=== PATIENT | female | born 1945 | race Caucasian/White ===

== ENCOUNTER 2021-10-05 09:53 | Emergency (ER) | payer MEDICARE, BC ==
[2021-10-05 11:25] VITALS: TEMP 97.7
[2021-10-05] MEDS ORDERED: SODIUM CHLORIDE 0.9% 500 ML 500 ML IV STA (12:56)
[2021-10-05] MEDS ORDERED: ONDANSETRON 4 MG/2 ML VIAL IVP STA (12:56)
[2021-10-05] MEDS ORDERED: KETOROLAC 15 MG/ML 1 ML VIAL IVP STA (12:57)
--- NOTE | 2021-10-05 13:01 | ED ---
Nausea/Vomiting/Diarrhea HPI - General Source: patient Mode of arrival: ambulatory Limitations: no limitations - History of Present Illness MD complaint: nausea, vomiting -: days(s) (6) Description of Vomiting: watery, bilious Associated Abdominal Pain: No Severity scale (1-10): 1 Quality: aching Consistency: constant Worsens with: eating Associated Symptoms: myalgias, cough, fever/chills, headaches, loss of appetite, malaise, nausea/vomiting <Pradip Lopez - Last Filed: 10/05/21 15:31> - General Source: RN notes reviewed, old records reviewed <Richie Cordero - Last Filed: 10/05/21 16:49> - General Chief complaint: Nausea/Vomiting/Diarrhea Stated complaint: headache, vomiting Time Seen by Provider: 10/05/21 12:45 - History of Present Illness Initial comments: This is a well-appearing 74-year-old female that presents to the emergency room alert and oriented 4 with complaints of body aches, nausea vomiting, cough and fever chills. Patient states that she received her Covid vaccine on and on Sunday she became sick. She has had persistent vomiting with decreased appetite. She denies any chest pain but does state she has an occasional dry cough. She denies any hematochezia or hematemesis. She states that she did try to eat something as unable related to the nausea. She's vomited 3 times today bilious in color. Does have a history of hypertension. (Pradip Lopez) - Related Data Home Medications Medication Instructions Recorded Confirmed Aspirin/Acetaminophen/Caffeine 2 tab PO Q12H PRN 10/05/21 10/05/21 [Excedrin Extra Strength Caplet] Clobetasol Propionate [Temovate 1 applic TOPICAL BID 10/05/21 10/05/21 0.05% Cream] Previous Rx's Medication Instructions Recorded Ondansetron Odt [Zofran Odt] 4 mg PO Q8HR PRN 3 Days #9 tab 10/05/21 Allergies Allergy/AdvReac Type Severity Reaction Status Date / Time gluten Allergy Unknown Verified 10/05/21 13:16 Iodinated Contrast Media Allergy Rash/Hives Verified 10/05/21 13:16 tetracycline Allergy Anaphylaxis Verified 10/05/21 13:16 Review of Systems ROS Other: All systems not noted in ROS Statement are negative. <Pradip Lopez - Last Filed: 10/05/21 15:31> ROS Other: All systems not noted in ROS Statement are negative. <Richie Cordero - Last Filed: 10/05/21 16:49> ROS Statement: Those systems with pertinent positive or pertinent negative responses have been documented in the HPI. Past Medical History Past Medical History: Hypertension History of Any Multi-Drug Resistant Organisms: None Reported Past Surgical History: Tonsillectomy Past Psychological History: No Psychological Hx Reported Smoking Status: Never smoker Past Alcohol Use History: None Reported Past Drug Use History: None Reported <Pradip Lopez - Last Filed: 10/05/21 15:31> General Exam Limitations: no limitations General appearance: alert, in no apparent distress Head exam: Present: atraumatic, normocephalic Eye exam: Present: normal appearance. Absent: scleral icterus, conjunctival injection, periorbital swelling, periorbital tenderness ENT exam: Present: normal exam, normal oropharynx, mucous membranes moist Neck exam: Present: normal inspection. Absent: tenderness, meningismus Respiratory exam: Present: normal lung sounds bilaterally. Absent: respiratory distress, wheezes, rales, rhonchi, stridor, accessory muscle use Cardiovascular Exam: Present: regular rate, normal rhythm GI/Abdominal exam: Present: soft. Absent: distended, tenderness, rigid Extremities exam: Present: normal inspection, normal capillary refill. Absent: tenderness, pedal edema Back exam: Present: normal inspection. Absent: tenderness, CVA tenderness (R), CVA tenderness (L), rash noted Neurological exam: Present: alert, oriented X3 Psychiatric exam: Present: normal affect, normal mood Skin exam: Present: warm, dry, normal color. Absent: cyanosis, diaphoretic, petechiae, pallor <Pradip Lopez - Last Filed: 10/05/21 15:31> Course - Reevaluation(s) Time: 15:31 <Pradip Lopez - Last Filed: 10/05/21 15:31> Vital Signs 10/05/21 11:19 Temperature 97.7 F Pulse Rate 76 Respiratory 15 Rate Blood Pressure 150/85 O2 Sat by Pulse 96 Oximetry - Reevaluation(s) Reevaluation #1: 10/05/21 15:31 Patient has no further nausea or vomiting. She does have a low-grade fever of 99.6. Labs are still pending, patient was signed out to Dr. Cordero for disposition. (Pradip Lopez) Medical Decision Making - Lab Data Result diagrams: 10/05/21 13:35 - EKG Data EKG shows normal: sinus rhythm (Ventricular rate of 63, MD interval 0.164, QRS 0.114, QTC 0.438) <Pradip Lopez - Last Filed: 10/05/21 15:31> - Lab Data Result diagrams: 10/05/21 13:35 10/05/21 15:21 <Richie Cordero - Last Filed: 10/05/21 16:49> - Medical Decision Making Patient was signed out to me pending results of the remaining laboratory studies. Patient received a COVID-19 vaccine last week has had nonspecific symptoms since. Primary is nausea and vomiting. On my evaluation, patient is tolerating oral intake and is feeling improved.I explained to her the results of her laboratory studies, which were relatively unremarkable. Patient has a mild leukocytosis of 12. Patient's urinalysis shows moderate leuk esterase with 8 wbc's. Patient recently completed a course of antibiotics for a UTI last week. Is having no current symptoms. We discussed results, and since we are sending off a culture for the urine, we'll update her if there are any signs of infection. I do not believe we need to start antibiotics at this time. Remainder the patient's labs and workup are unremarkable. She expressed understanding. She will like to go home. I believe this is reasonable. Patient received ODT Zofran as prescribed. I will provide the patient with a prescription for ODT Zofran. I instructed the patient to follow up with their PCP in the next 3 days. I explained that the patient should return to the emergency department if they experience any worsening symptoms. Strict return precautions were discussed with the patient. The patient expressed understanding of these instructions. I answered all questions that the patient had. The patient was discharged home in good condition with their prescriptions and follow up information. (Richie Cordero) - Lab Data Lab Results 10/05/21 10/05/21 10/05/21 Range/Units 13:35 13:35 13:35 WBC 12.0 H (3.8-10.6) k/uL RBC 4.47 (3.80-5.40) m/uL Hgb 14.1 (11.4-16.0) gm/dL Hct 41.8 (34.0-46.0) % MCV 93.6 (80.0-100.0) fL MCH 31.6 (25.0-35.0) pg MCHC 33.8 (31.0-37.0) g/dL RDW 12.4 (11.5-15.5) % Plt Count 258 (150-450) k/uL MPV 9.3 Neutrophils % 69 % Lymphocytes % 20 % Monocytes % 7 % Eosinophils % 2 % Basophils % 1 % Neutrophils # 8.3 H (1.3-7.7) k/uL Lymphocytes # 2.3 (1.0-4.8) k/uL Monocytes # 0.9 (0-1.0) k/uL Eosinophils # 0.2 (0-0.7) k/uL Basophils # 0.1 (0-0.2) k/uL Sodium (137-145) mmol/L Potassium (3.5-5.1) mmol/L Chloride (98-107) mmol/L Carbon Dioxide (22-30) mmol/L Anion Gap mmol/L BUN (7-17) mg/dL Creatinine (0.52-1.04) mg/dL Est GFR (CKD-EPI)AfAm (>60 ml/min/1.73 sqM) Est GFR (CKD-EPI)NonAf (>60 ml/min/1.73 sqM) Glucose (74-99) mg/dL Calcium (8.4-10.2) mg/dL Total Bilirubin (0.2-1.3) mg/dL AST (14-36) U/L ALT (4-34) U/L Alkaline Phosphatase (38-126) U/L Total Protein (6.3-8.2) g/dL Albumin (3.5-5.0) g/dL Amylase (30-110) U/L Lipase (23-300) U/L Urine Color Yellow Urine Appearance Clear (Clear) Urine pH 5.5 (5.0-8.0) Ur Specific [place] 1.026 (1.001-1.035) Urine Protein Trace H (Negative) Urine Glucose (UA) Negative (Negative) Urine Ketones Negative (Negative) Urine Blood Negative (Negative) Urine Nitrite Negative (Negative) Urine Bilirubin Negative (Negative) Urine Urobilinogen <2.0 (<2.0) mg/dL Ur Leukocyte Esterase Moderate H (Negative) Urine RBC 1 (0-5) /hpf Urine WBC 8 H (0-5) /hpf Ur Squamous Epith Cells <1 (0-4) /hpf Urine Mucus Few H (None) /hpf Coronavirus (PCR) (Not Detectd) Influenza Type A RNA Not Detected (Not Detectd) Influenza Type B (PCR) Not Detected (Not Detectd) 10/05/21 10/05/21 Range/Units 13:35 15:21 WBC (3.8-10.6) k/uL RBC (3.80-5.40) m/uL Hgb (11.4-16.0) gm/dL Hct (34.0-46.0) % MCV (80.0-100.0) fL MCH (25.0-35.0) pg MCHC (31.0-37.0) g/dL RDW (11.5-15.5) % Plt Count (150-450) k/uL MPV Neutrophils % % Lymphocytes % % Monocytes % % Eosinophils % % Basophils % % Neutrophils # (1.3-7.7) k/uL Lymphocytes # (1.0-4.8) k/uL Monocytes # (0-1.0) k/uL Eosinophils # (0-0.7) k/uL Basophils # (0-0.2) k/uL Sodium 133 L (137-145) mmol/L Potassium 3.7 (3.5-5.1) mmol/L Chloride 99 (98-107) mmol/L Carbon Dioxide 26 (22-30) mmol/L Anion Gap 8 mmol/L BUN 17 (7-17) mg/dL Creatinine 0.81 (0.52-1.04) mg/dL Est GFR (CKD-EPI)AfAm 84 (>60 ml/min/1.73 sqM) Est GFR (CKD-EPI)NonAf 73 (>60 ml/min/1.73 sqM) Glucose 94 (74-99) mg/dL Calcium 8.1 L (8.4-10.2) mg/dL Total Bilirubin 0.6 (0.2-1.3) mg/dL AST 23 (14-36) U/L ALT 25 (4-34) U/L Alkaline Phosphatase 104 (38-126) U/L Total Protein 6.9 (6.3-8.2) g/dL Albumin 3.6 (3.5-5.0) g/dL Amylase 89 (30-110) U/L Lipase 220 (23-300) U/L Urine Color Urine Appearance (Clear) Urine pH (5.0-8.0) Ur Specific [place] (1.001-1.035) Urine Protein (Negative) Urine Glucose (UA) (Negative) Urine Ketones (Negative) Urine Blood (Negative) Urine Nitrite (Negative) Urine Bilirubin (Negative) Urine Urobilinogen (<2.0) mg/dL Ur Leukocyte Esterase (Negative) Urine RBC (0-5) /hpf Urine WBC (0-5) /hpf Ur Squamous Epith Cells (0-4) /hpf Urine Mucus (None) /hpf Coronavirus (PCR) Not Detected (Not Detectd) Influenza Type A RNA (Not Detectd) Influenza Type B (PCR) (Not Detectd) Disposition <Pradip Lopez - Last Filed: 10/05/21 15:31> Is patient prescribed a controlled substance at d/c from ED?: No Time of Disposition: 16:15 <Richie Cordero - Last Filed: 10/05/21 16:49> Clinical Impression: Nausea and vomiting Disposition: HOME SELF-CARE Condition: Good Instructions (If sedation given, give patient instructions): Acute Nausea and Vomiting (ED) Prescriptions: Ondansetron Odt [Zofran Odt] 4 mg PO Q8HR PRN 3 Days #9 tab PRN Reason: Nausea Referrals: Justine Jarvis MD [Primary Care Provider] - 1-2 days
--- NOTE | 2021-10-05 14:13 | XR ---
EXAMINATION TYPE: XR chest 2V DATE OF EXAM: 10/05/2021 COMPARISON: NONE HISTORY: Shortness of breath TECHNIQUE: Frontal and lateral views of the chest are obtained. FINDINGS: Scattered senescent parenchymal changes noted. No evidence for infiltrate. No evidence for atelectasis. Heart size is stable. Mediastinal structures are stable and grossly unremarkable. No evidence for hilar prominence. Degenerative changes dorsal spine. IMPRESSION: 1. No evidence for acute pulmonary disease.
[2021-10-05 14:19] LABS: Basophils # (A) 0.1 k/uL (0-0.2); Basophils % (A) 1 %; Eosinophils # (A) 0.2 k/uL (0-0.7); Eosinophils % (A) 2 %; HCT 41.8 % (34.0-46.0); HGB 14.1 gm/dL (11.4-16.0); Lymphocytes # (A) 2.3 k/uL (1.0-4.8); Lymphocytes % (A) 20 %; MCH 31.6 pg (25.0-35.0); MCHC 33.8 g/dL (31.0-37.0); MCV 93.6 fL (80.0-100.0); Mean Platelet Volume 9.3; Monocytes # (A) 0.9 k/uL (0-1.0); Monocytes % (A) 7 %; Neutrophils # (A) 8.3 k/uL (1.3-7.7); Neutrophils % (A) 69 %; Platelet Count 258 k/uL (150-450); RBC 4.47 m/uL (3.80-5.40); RDW 12.4 % (11.5-15.5)
[2021-10-05 14:42] LABS: Appearance,Urine Clear (Clear); Bilirubin,Urine Negative (Negative); Blood,Urine Negative (Negative); Color,Urine Yellow; Glucose,Urine (UA) Negative (Negative); Ketones,Urine Negative (Negative); Leukocyte Esterase,Urine Moderate (Negative); Mucus,Urine Few /hpf; Nitrite,Urine Negative (Negative); PH, Urine 5.5 (5.0-8.0); Protein,Urine Trace (Negative); RBC,Urine 1 /hpf (0-5); Specific Gravity,Urine 1.026 (1.001-1.035); Squamous Epithelial Cell,Urine <1 /hpf (0-4); Urobilinogen,Urine <2.0 mg/dL (<2.0); WBC,Urine 8 /hpf (0-5)
[2021-10-05] MEDS ORDERED: ACETAMINOPHEN TAB 500 MG TAB PO STA (15:32)
[2021-10-05 15:43] LABS: Albumin 3.6 g/dL (3.5-5.0); Calcium 8.1 mg/dL (8.4-10.2); Potassium 3.7 mmol/L (3.5-5.1); Total Bilirubin 0.6 mg/dL (0.2-1.3); Total Protein 6.9 g/dL (6.3-8.2)
[2021-10-05 16:35] VITALS: BP 120/67; PULSE 86; RESP 16
== END 2021-10-05 16:35 | disposition home or self-care (01) ==
LOC: EC 09:53
DX: R11.2 Nausea with vomiting, unspecified (principal); Z20.822 Contact with and (suspected) exposure to COVID-19; I10 Essential (primary) hypertension; Z79.82 Long term (current) use of aspirin
CPT/HCPCS: 36415; 93005; 80053; 82150; 83690; 85025; 81001; 87502; 87635; 71046; 99284; 96374; 96375; 96361; J2405; J1885

== ENCOUNTER → 2023-10-09 | Outpatient (CLI) | payer MEDICARE, BC ==
--- NOTE | 2023-10-09 15:48 | BD ---
EXAMINATION TYPE: Axial Bone Density DATE OF EXAM: 10/09/2023 CLINICAL HISTORY: 77 years old Female. ICD-10 CODE: Z78.0 ASYMP PIOTR STATE Height: 64.2 in Weight: 197 lbs FRAX RISK QUESTIONS: Secondary Osteoporosis: 3. Menopause before 45: age 44 RISK FACTORS HISTORY OF: Surgery to Hip(right/left): rt 03/08 and 2017 EXAM MEASUREMENTS: Bone mineral densitometry was performed using the [employer] System. Bone mineral density as measured about the Lumbar spine is: ----- L1-L4(G/cm2): 1.728 T Score Values are as follows: ----- L1: 2.6 ----- L2: 3.0 ----- L3: 5.6 ----- L4: 6.7 ----- L1-L4: 4.6 Z Score Values are as follows: ----- L1: 3.6 ----- L2: 3.9 ----- L3: 6.5 ----- L4: 7.7 ----- L1-L4: 5.5 Bone mineral density baseline elías hip replacement. rt 2022 and 2017 Bone mineral density about the L Wrist (g/cm2): 0.689 T Score values are as follows: -----Dist. R+U: 0.7 -----Prox. R+U: 0.4 -----Radius total: 0.2 Z Score values are as follows: -----Dist. R+U: 3.1 -----Prox. R+U: 2.7 -----Radius total: 2.6 Bone mineral density baseline IMPRESSION: Normal (Values between +1 and -1 indicate normal bone mass). Consider repeating this study in 5 year s or sooner if there is some new clinical indication. NOTE: T-SCORE=SD OF THE YOUNG ADULT MEAN.
[2023-10-09 15:53] LABS: HCT 41.8 % (34.0-46.0); HGB 12.8 gm/dL (11.4-16.0); MCH 30.4 pg (25.0-35.0); MCHC 30.7 g/dL (31.0-37.0); MCV 99.3 fL (80.0-100.0); Mean Platelet Volume 9.6; Platelet Count 241 k/uL (150-450); RDW 12.7 % (11.5-15.5); WBC 7.9 k/uL (3.8-10.6)
[2023-10-09 16:08] LABS: ALT 21 U/L (4-34); AST 24 U/L (14-36); African American GFR (CKD) 68 (>60 ml/min/1.73 sqM); Albumin 4.1 g/dL (3.5-5.0); Alkaline Phosphatase 147 U/L (38-126); Anion Gap 6 mmol/L; Blood Urea Nitrogen 18 mg/dL (7-17); Calcium 9.2 mg/dL (8.4-10.2); Carbon Dioxide 27 mmol/L (22-30); Chloride 106 mmol/L (98-107); Glucose 84 mg/dL (74-99); Non-African American GFR(CKD) 59 (>60 ml/min/1.73 sqM); Potassium 4.5 mmol/L (3.5-5.1); Sodium 139 mmol/L (137-145); Total Bilirubin 0.7 mg/dL (0.2-1.3); Total Protein 7.3 g/dL (6.3-8.2)
[2023-10-09 16:21] LABS: T4, Free (Free Thyroxine) 0.89 ng/dL (0.78-2.19)
[2023-10-10 02:44] LABS: Chol/HDL Ratio 3.75 Ratio; LDL Cholesterol,Calculated 118.1 mg/dL (0.0-131.0)
== END | disposition home or self-care (01) ==
LOC: RADBDWWP 14:21
PROVIDERS: ATTEND Family Medicine
DX: Z78.0 Asymptomatic menopausal state (principal)
CPT/HCPCS: 36415; 77080; 80053; 80061; 82306; 83036; 84439; 84443; 85027

== ENCOUNTER 2023-10-25 13:24 | Observation (INO) | payer MEDICARE, BC ==
[2023-10-25 15:23] LABS: Basophils % (A) 0 %; Eosinophils # (A) 0.1 k/uL (0-0.7); Eosinophils % (A) 1 %; HCT 41.3 % (34.0-46.0); HGB 13.6 gm/dL (11.4-16.0); Lymphocytes # (A) 0.5 k/uL (1.0-4.8); Lymphocytes % (A) 7 %; MCH 30.9 pg (25.0-35.0); Mean Platelet Volume 9.9; Monocytes # (A) 0.6 k/uL (0-1.0); Monocytes % (A) 7 %; Neutrophils # (A) 6.3 k/uL (1.3-7.7); Neutrophils % (A) 83 %; Platelet Count 178 k/uL (150-450); RBC 4.41 m/uL (3.80-5.40); RDW 12.7 % (11.5-15.5); WBC 7.5 k/uL (3.8-10.6)
[2023-10-25] MEDS: SODIUM CHLORIDE 0.9% 1,000 ML IV ONE ×2 (15:23→18:15)
[2023-10-25] MEDS: ONDANSETRON 4 MG/2 ML VIAL IVP STA (15:23)
[2023-10-25] MEDS: SODIUM CHLORIDE 0.9% 1,000 ML IV STA (15:23)
[2023-10-25 15:28] LABS: ALT 21 U/L (4-34); AST 25 U/L (14-36); African American GFR (CKD) 64 (>60 ml/min/1.73 sqM); Albumin 3.6 g/dL (3.5-5.0); Alkaline Phosphatase 116 U/L (38-126); Amylase 106 U/L (30-110); Anion Gap 7 mmol/L; Blood Urea Nitrogen 21 mg/dL (7-17); Calcium 8.5 mg/dL (8.4-10.2); Carbon Dioxide 26 mmol/L (22-30); Chloride 100 mmol/L (98-107); Glucose 114 mg/dL (74-99); Lipase 453 U/L (23-300); Non-African American GFR(CKD) 55 (>60 ml/min/1.73 sqM); Potassium 4.4 mmol/L (3.5-5.1); Sodium 133 mmol/L (137-145); Total Bilirubin 0.4 mg/dL (0.2-1.3); Total Protein 6.7 g/dL (6.3-8.2)
[2023-10-25 15:33] LABS: MCV 93.6 fL (80.0-100.0)
[2023-10-25] MEDS: METOCLOPRAMIDE 5 MG/ML 2 ML VIAL IVP STA (18:16)
[2023-10-25] MEDS: ASPIRIN-ACET-CAFF 250-250-65MG 1 EACH TAB PO STA (19:01)
[2023-10-25] MEDS ORDERED: ACETAMINOPHEN TAB 325 MG TAB PO PRN (20:52)
[2023-10-25] MEDS ORDERED: NALOXONE 0.4 MG/ML 1 ML VIAL IV PRN (20:52)
[2023-10-25] MEDS ORDERED: ONDANSETRON 4 MG/2 ML VIAL IVP PRN (20:52)
[2023-10-25] MEDS ORDERED: MORPHINE SULFATE 4 MG/ML SYRINGE IV PRN (20:52)
--- NOTE | 2023-10-25 21:01 | CT ---
EXAMINATION TYPE: CT abdomen pelvis wo con DATE OF EXAM: 10/25/2023 COMPARISON: None INDICATION: Intractable vomiting/fever. DLP: 720.1 mGycm, Automated exposure control for dose reduction was used. CONTRAST: 0 mL of Isovue 300. Study performed without Oral Contrast TECHNIQUE: Axial images were obtained from above the diaphragm to the pubic rami in the axial plane a t 5 mm thick sections. Reconstructed images are reviewed on the computer in the coronal plane. FINDINGS: Limited CT sections are obtained the lung bases. The lung bases are clear. CT ABDOMEN: Liver: Normal Spleen: Normal Pancreas: Normal Adrenal glands: The adrenal glands are normal. Gallbladder: Gallstones are present. Kidneys: No masses are evident. No hydronephrosis is present. There is a large cyst on the medial i nferior right kidney no renal stones are evident Aorta: Vascular calcification is within the aorta. Inferior vena cava: Normal. CT PELVIS: Periumbilical fat-containing hernia is present with an opening of 2.1 cm Loops of bowel within the abdomen and pelvis are normal. Studies without oral contrast limiting b owel evaluation. Diverticular changes sigmoid colon without acute diverticulitis. The prosthesis dede fact limits the inferior most portion of the pelvis. No suspicious dilated loops of bowel are evident . Appendix: Normal as visualized. Urinary bladder: Normal. Genitourinary structures: Uterus is normal adnexa are unremarkable Osseous structures: No suspicious lytic or sclerotic lesions. IMPRESSION: 1. No suspicious abnormality account for vomiting. Correlate for gastroenteritis. 2. Periumbilical hernia containing mesenteric fat. 3. Cholelithiasis 4. Right renal cyst
[2023-10-26] MEDS: ONDANSETRON 4 MG/2 ML VIAL IVP STA (00:10)
[2023-10-26] MEDS: SODIUM CHLORIDE 0.9% 1,000 ML IV SCH (00:15)
--- NOTE | 2023-10-26 00:31 | ED ---
Nausea/Vomiting/Diarrhea HPI - General Chief complaint: Weakness Stated complaint: vomitting/weakness Time Seen by Provider: 10/25/23 13:58 Source: patient Mode of arrival: wheelchair Limitations: no limitations - History of Present Illness Initial comments: This patient is a 78-year-old woman who presents to evaluation for nausea and vomiting which has been going on since approximately Sunday. The patient states that she now is feeling very weak. She had been seen clinic in [place] Sunday, she had IV fluids and was feeling a little better.. The patient reports that symptoms recurred and she has not been tolerating much in the way of oral intake. She now is becoming very weak. She is having a hard time getting around the house. She is sleeping all the time. MD complaint: nausea, vomiting, diarrhea Onset/Timin -: days(s) Description of Vomiting: food contents Location: diffuse Radiation: none Severity: mild Quality: cramping Consistency: intermittent Improves with: none Worsens with: none Associated Symptoms: weakness - Related Data Home Medications Medication Instructions Recorded Confirmed Cholecalciferol [Vitamin D3 (25 50 mcg PO DAILY 10/25/23 10/25/23 Mcg = 1000 Iu)] Losartan [Cozaar] 25 mg PO DAILY 10/25/23 10/25/23 Losartan [Cozaar] 50 mg PO DAILY 10/25/23 10/25/23 Multivitamins, Thera [Multivitamin 1 tab PO DAILY 10/25/23 10/25/23 (formulary)] Sulfamethox-Tmp 800-160Mg [Bactrim 1 tab PO BID 10/25/23 10/25/23 DS 800-160 mg] Vit C/E/Zn/Coppr/Lutein/Zeaxan 1 cap PO BID 10/25/23 10/25/23 [Preservision Areds 2 Softgel] Previous Rx's Medication Instructions Recorded Ondansetron Odt [Zofran Odt] 4 mg PO Q8HR PRN 3 Days #9 tab 10/05/21 Allergies Allergy/AdvReac Type Severity Reaction Status Date / Time Iodinated Contrast Media Allergy Rash/Hives Verified 10/25/23 15:20 Latex, Natural Rubber Allergy Rash/Hives Verified 10/25/23 15:20 tetracycline Allergy Anaphylaxis Verified 10/25/23 15:20 gluten AdvReac Nausea & Verified 10/25/23 15:20 Vomiting & Diarrhea Review of Systems ROS Statement: Those systems with pertinent positive or pertinent negative responses have been documented in the HPI. ROS Other: All systems not noted in ROS Statement are negative. Constitutional: Reports: weakness. Denies: fever, chills ENT: Denies: throat pain, congestion Respiratory: Denies: cough, dyspnea, wheezes Cardiovascular: Denies: chest pain, palpitations, edema Gastrointestinal: Reports: nausea, vomiting, diarrhea. Denies: constipation, hematemesis, melena, hematochezia Genitourinary: Denies: dysuria, frequency, hematuria Musculoskeletal: Denies: back pain Skin: Denies: rash Neurological: Denies: headache, weakness, numbness Past Medical History Past Medical History: Hypertension History of Any Multi-Drug Resistant Organisms: None Reported Past Surgical History: Tonsillectomy Past Psychological History: No Psychological Hx Reported Smoking Status: Never smoker Past Alcohol Use History: None Reported Past Drug Use History: None Reported General Exam Limitations: no limitations General appearance: alert, in no apparent distress Head exam: Present: atraumatic, normocephalic Eye exam: Present: normal appearance. Absent: scleral icterus, conjunctival in jection ENT exam: Present: mucous membranes dry Neck exam: Present: normal inspection, full ROM. Absent: meningismus Respiratory exam: Present: normal lung sounds bilaterally. Absent: respiratory distress, wheezes, rales, rhonchi, stridor, accessory muscle use Cardiovascular Exam: Present: regular rate, normal rhythm, normal heart sounds. Absent: systolic murmur, diastolic murmur, rubs, gallop GI/Abdominal exam: Present: soft. Absent: distended, tenderness, guarding, rebound, rigid, mass, hernia Extremities exam: Present: normal inspection, normal capillary refill. Absent: pedal edema, calf tenderness Back exam: Present: normal inspection. Absent: CVA tenderness (R), CVA tenderness (L) Neurological exam: Present: alert Skin exam: Present: warm, dry, intact, normal color. Absent: rash Course Vital Signs 10/25/23 10/25/23 10/25/23 13:32 15:25 18:18 Temperature 98.8 F Pulse Rate 81 65 75 Respiratory 16 16 16 Rate Blood Pressure 113/69 118/61 128/69 O2 Sat by Pulse 96 95 95 Oximetry 10/25/23 10/26/23 18:56 00:00 Temperature 101.4 F H 98.6 F Pulse Rate 66 Respiratory 16 Rate Blood Pressure 124/66 O2 Sat by Pulse 97 Oximetry Medical Decision Making - Medical Decision Making Patient is 78-year-old woman here with nausea and vomiting. The patient continued to have nausea despite fluids and medications. The patient then spiked fever and did have some abdominal discomfort, therefore CT scan is obta [id number] which does not reveal etiology of fever. Given that the patient has not had marked improvement, will admit to have continued hydration, antiemetics, - Lab Data Result diagrams: 10/25/23 15:13 10/25/23 15:13 Lab Results 10/25/23 10/25/23 Range/Units 15:13 15:13 WBC 7.5 (3.8-10.6) k/uL RBC 4.41 (3.80-5.40) m/uL Hgb 13.6 (11.4-16.0) gm/dL Hct 41.3 (34.0-46.0) % MCV 93.6 D (80.0-100.0) fL MCH 30.9 (25.0-35.0) pg MCHC 33.0 (31.0-37.0) g/dL RDW 12.7 (11.5-15.5) % Plt Count 178 (150-450) k/uL MPV 9.9 Neutrophils % 83 % Lymphocytes % 7 % Monocytes % 7 % Eosinophils % 1 % Basophils % 0 % Neutrophils # 6.3 (1.3-7.7) k/uL Lymphocytes # 0.5 L (1.0-4.8) k/uL Monocytes # 0.6 (0-1.0) k/uL Eosinophils # 0.1 (0-0.7) k/uL Basophils # 0.0 (0-0.2) k/uL Sodium 133 L (137-145) mmol/L Potassium 4.4 (3.5-5.1) mmol/L Chloride 100 (98-107) mmol/L Carbon Dioxide 26 (22-30) mmol/L Anion Gap 7 mmol/L BUN 21 H (7-17) mg/dL Creatinine 1.00 (0.52-1.04) mg/dL Est GFR (CKD-EPI)AfAm 64 (>60 ml/min/1.73 sqM) Est GFR (CKD-EPI)NonAf 55 (>60 ml/min/1.73 sqM) Glucose 114 H (74-99) mg/dL Calcium 8.5 (8.4-10.2) mg/dL Total Bilirubin 0.4 (0.2-1.3) mg/dL AST 25 (14-36) U/L ALT 21 (4-34) U/L Alkaline Phosphatase 116 (38-126) U/L Total Protein 6.7 (6.3-8.2) g/dL Albumin 3.6 (3.5-5.0) g/dL Amylase 106 (30-110) U/L Lipase 453 H (23-300) U/L Disposition Clinical Impression: Intractable vomiting Disposition: ADMITTED IP TO THIS [facility] Condition: Good Is patient prescribed a controlled substance at d/c from ED?: No
[2023-10-26] MEDS: PANTOPRAZOLE 40 MG/10 ML VIAL IVP SCH (11:34)
[2023-10-26] MEDS: ASPIRIN-ACET-CAFF 250-250-65MG 1 EACH TAB PO PRN (11:40)
--- NOTE | 2023-10-26 12:06 | P.HPIM ---
History of Present Illness -78-year-old female came in with complaints of nausea vomiting found to have some gastroenteritis and an incidental finding of umbilical hernia although clinically patient does not appear to have any incarcerated hernia patient denies any abdominal pain at this time patient has not been tolerating food very well patient was seen in ER couple days ago was sent home and comes back again patient was started on Protonix is on full liquid diet will advance to soft diet later today. REVIEW OF SYSTEMS: All other systems are negative except those mentioned in the HPI PHYSICAL EXAMINATION: GENERAL: The patient is alert and oriented x3, not in any acute distress. Well developed, well nourished. HEENT: Pupils are round and equally reacting to light. EOMI. No scleral icterus. No conjunctival pallor. Normocephalic, atraumatic. No pharyngeal erythema. No thyromegaly. CARDIOVASCULAR: S1 and S2 present. No murmurs, rubs, or gallops. PULMONARY: Chest is clear to auscultation, no wheezing or crackles. ABDOMEN: Soft, nontender, nondistended, normoactive bowel sounds. No palpable organomegaly. MUSCULOSKELETAL: No joint swelling or deformity. EXTREMITIES: No cyanosis, clubbing, or pedal edema. NEUROLOGICAL: Gross neurological examination did not reveal any focal deficits. SKIN: No rashes. Assessment and plan -Nausea vomiting secondary to gastritis, peptic ulcer disease or gastroenteritis Protonix advance diet as tolerated if she can tolerate diet better later today patient will be discharged today. Patient is also on Bactrim may have contributed to her nausea vomiting I need to find out why patient is taking Ba ctrim. -Hypovolemic hyponatremia secondary to nausea vomiting IV fluids -Nonspecific elevation of lipase Hypertension patient can continue her losartan at home her blood pressure is slightly low because of nausea vomiting and dehydration If patient can tolerate diet well later today will be discharged today. Past Medical History Past Medical History: Hypertension History of Any Multi-Drug Resistant Organisms: None Reported Past Surgical History: Tonsillectomy Past Psychological History: No Psychological Hx Reported Smoking Status: Never smoker Past Alcohol Use History: None Reported Past Drug Use History: None Reported Medications and Allergies Home Medications Medication Instructions Recorded Confirmed Type Ondansetron Odt [Zofran Odt] 4 mg PO Q8HR PRN 3 Days #9 tab 10/05/21 10/25/23 Rx Cholecalciferol [Vitamin D3 (25 50 mcg PO DAILY 10/25/23 10/25/23 History Mcg = 1000 Iu)] Losartan [Cozaar] 25 mg PO DAILY 10/25/23 10/25/23 History Losartan [Cozaar] 50 mg PO DAILY 10/25/23 10/25/23 History Multivitamins, Thera [Multivitamin 1 tab PO DAILY 10/25/23 10/25/23 History (formulary)] Sulfamethox-Tmp 800-160Mg [Bactrim 1 tab PO BID 10/25/23 10/25/23 History DS 800-160 mg] Vit C/E/Zn/Coppr/Lutein/Zeaxan 1 cap PO BID 10/25/23 10/25/23 History [Preservision Areds 2 Softgel] Allergies Allergy/AdvReac Type Severity Reaction Status Date / Time Iodinated Contrast Media Allergy Rash/Hives Verified 10/25/23 15:20 Latex, Natural Rubber Allergy Rash/Hives Verified 10/25/23 15:20 tetracycline Allergy Anaphylaxis Verified 10/25/23 15:20 gluten AdvReac Nausea & Verified 10/25/23 15:20 Vomiting & Diarrhea Physical Exam Vitals: Vital Signs Temp Pulse Resp BP Pulse Ox 10/26/23 11:47 66 14 116/55 98 10/26/23 09:41 73 16 138/80 95 10/26/23 07:42 98.5 F 68 18 110/51 100 10/26/23 07:00 99.2 F 10/26/23 05:57 99.6 F 82 19 132/64 97 10/26/23 00:00 98.6 F 66 16 124/66 97 10/25/23 18:56 101.4 F H 10/25/23 18:18 75 16 128/69 95 10/25/23 15:25 65 16 118/61 95 10/25/23 13:32 98.8 F 81 16 113/69 96 Results CBC & Chem 7: 10/25/23 15:13 10/25/23 15:13 Labs: Abnormal Lab Results - Last 24 Hours (Table) 10/25/23 10/25/23 Range/Units 15:13 15:13 Lymphocytes # 0.5 L (1.0-4.8) k/uL Sodium 133 L (137-145) mmol/L BUN 21 H (7-17) mg/dL Glucose 114 H (74-99) mg/dL Lipase 453 H (23-300) U/L
--- NOTE | 2023-10-26 13:10 | P.GSCN ---
History of Present Illness Consult date: 10/26/23 History of present illness: CHIEF COMPLAINT: Nausea and vomiting HISTORY OF PRESENT ILLNESS: The patient is a 78-year-old female who presented to the hospital with complaints of nausea and vomiting for the past 5 days. She also has been having a cough. She reports decreased appetite. She denies any abdominal pain. She did have a fever of 101.4 in the ER. Patient had gone to clinic in [place] on Sunday and received IV fluids which did help with her symptoms. CT scan abdomen pelvis did reveal gallstones and periumbilical hernia with fat. She reports feeling weak. Prior abdominal surgeries include tubal ligation. PAST MEDICAL HISTORY: See below PAST SURGICAL HISTORY: See below. Tubal ligation MEDICATIONS: See below ALLERGIES: See below SOCIAL HISTORY: No illicit drug use. Denies alcohol use REVIEW OF SYSTEMS: CONSTITUTIONAL: Denies fever or chills. HEENT: Denies blurred vision, vision changes, or eye pain. Denies hemoptysis CARDIOVASCULAR: Denies chest pain or pressure. RESPIRATORY: No shortness of breath. GASTROINTESTINAL: See HPI for pertinent findings HEMATOLOGIC: Denies bleeding disorders. GENITOURINARY: Denies any blood in urine or increased urinary frequency. SKIN: Denies pruitis. Denies rash. PHYSICAL EXAM: VITAL SIGNS: Reviewed GENERAL: no acute distress. weak HEENT: No sclera icterus. Extraocular movements grossly intact. Moist buccal mucosa. Head is atraumatic, normocephalic. No nasal drainage. ABDOMEN: Soft. Nondistended. Nontender. No pain in RUQ. Umbilical hernia soft, reducible, nontender NEUROLOGIC: Alert and oriented. Cranial nerves II through XII grossly intact. LABORATORY DATA: WBC 7.5 HGB 13.6 plt 178 Na 133 K 4.4 Cr 1.0 LFTs normal Lipase 453 IMAGING: CT scan abdomen pelvis reports no suspicious abnormality accounting for vomiting. Correlate for gastroenteritis. Periumbilical hernia containing mesenteric fat. Cholelithiasis. Right renal cyst. ASSESSMENT: 1. Nausea and vomiting, possible gastroenteritis 2. Cholelithiasis 3. Cough 4. Mildly elevated lipase PLAN: -No surgical invention planned -Agree with advancing diet and if tolerates okay for discharge -Continue IV fluids for now -Continue antiemetics -Recommend checking patient for influenza and COVID -Continue supportive care Physician Instructional Leader note has been reviewed by physician. Signing provider agrees with the documented findings, assessment, and plan of care. I have personally seen and examined the patient, reviewed the TEXTURE ARTIST /PAs history, exam and MDM and agree with the assessment and plan as written. Based on total visit time, I have performed more than 50% of the visit. As above: Patient came to the hospital with fevers and profound weakness. He has been having some anorexia and some vomiting as well. Denies abdominal pain. Complaining of cough. Etiology for fever is unclear. White blood cell count normal. Incidental finding of gallstones. Do not think that is contributing to her nausea and vomiting at this time. Continue workup of the patient's fevers. Agree with advancing diet. Will follow. Past Medical History Past Medical History: Hypertension History of Any Multi-Drug Resistant Organisms: None Reported Past Surgical History: Tonsillectomy Past Psychological History: No Psychological Hx Reported Smoking Status: Never smoker Past Alcohol Use History: None Reported Past Drug Use History: None Reported Medications and Allergies Home Medications Medication Instructions Recorded Confirmed Type Ondansetron Odt [Zofran Odt] 4 mg PO Q8HR PRN 3 Days #9 tab 10/05/21 10/25/23 Rx Cholecalciferol [Vitamin D3 (25 50 mcg PO DAILY 10/25/23 10/25/23 History Mcg = 1000 Iu)] Losartan [Cozaar] 25 mg PO DAILY 10/25/23 10/25/23 History Losartan [Cozaar] 50 mg PO DAILY 10/25/23 10/25/23 History Multivitamins, Thera [Multivitamin 1 tab PO DAILY 10/25/23 10/25/23 History (formulary)] Sulfamethox-Tmp 800-160Mg [Bactrim 1 tab PO BID 10/25/23 10/25/23 History DS 800-160 mg] Vit C/E/Zn/Coppr/Lutein/Zeaxan 1 cap PO BID 10/25/23 10/25/23 History [Preservision Areds 2 Softgel] Allergies Allergy/AdvReac Type Severity Reaction Status Date / Time Iodinated Contrast Media Allergy Rash/Hives Verified 10/25/23 15:20 Latex, Natural Rubber Allergy Rash/Hives Verified 10/25/23 15:20 tetracycline Allergy Anaphylaxis Verified 10/25/23 15:20 gluten AdvReac Nausea & Verified 10/25/23 15:20 Vomiting & Diarrhea Surgical - Exam Vital Signs Temp Pulse Resp BP Pulse Ox 98.8 F 81 16 113/69 96 10/25/23 13:32 10/25/23 13:32 10/25/23 13:32 10/25/23 13:32 10/25/23 13:32 Results - Labs 10/25/23 15:13 10/25/23 15:13 Abnormal Lab Results - Last 24 Hours (Table) 10/25/23 10/25/23 Range/Units 15:13 15:13 Lymphocytes # 0.5 L (1.0-4.8) k/uL Sodium 133 L (137-145) mmol/L BUN 21 H (7-17) mg/dL Glucose 114 H (74-99) mg/dL Lipase 453 H (23-300) U/L Diabetes panel 10/25/23 Range/Units 15:13 Sodium 133 L (137-145) mmol/L Potassium 4.4 (3.5-5.1) mmol/L Chloride 100 (98-107) mmol/L Carbon Dioxide 26 (22-30) mmol/L BUN 21 H (7-17) mg/dL Creatinine 1.00 (0.52-1.04) mg/dL Glucose 114 H (74-99) mg/dL Calcium 8.5 (8.4-10.2) mg/dL AST 25 (14-36) U/L ALT 21 (4-34) U/L Alkaline Phosphatase 116 (38-126) U/L Total Protein 6.7 (6.3-8.2) g/dL Albumin 3.6 (3.5-5.0) g/dL Calcium panel 10/25/23 Range/Units 15:13 Calcium 8.5 (8.4-10.2) mg/dL Albumin 3.6 (3.5-5.0) g/dL Pituitary panel 10/25/23 Range/Units 15:13 Sodium 133 L (137-145) mmol/L Potassium 4.4 (3.5-5.1) mmol/L Chloride 100 (98-107) mmol/L Carbon Dioxide 26 (22-30) mmol/L BUN 21 H (7-17) mg/dL Creatinine 1.00 (0.52-1.04) mg/dL Glucose 114 H (74-99) mg/dL Calcium 8.5 (8.4-10.2) mg/dL Adrenal panel 10/25/23 Range/Units 15:13 Sodium 133 L (137-145) mmol/L Potassium 4.4 (3.5-5.1) mmol/L Chloride 100 (98-107) mmol/L Carbon Dioxide 26 (22-30) mmol/L BUN 21 H (7-17) mg/dL Creatinine 1.00 (0.52-1.04) mg/dL Glucose 114 H (74-99) mg/dL Calcium 8.5 (8.4-10.2) mg/dL Total Bilirubin 0.4 (0.2-1.3) mg/dL AST 25 (14-36) U/L ALT 21 (4-34) U/L Alkaline Phosphatase 116 (38-126) U/L Total Protein 6.7 (6.3-8.2) g/dL Albumin 3.6 (3.5-5.0) g/dL
[2023-10-26 14:52] VITALS: RESP 16
--- NOTE | 2023-10-26 16:41 | XR ---
EXAMINATION: XR chest 2V: 10/26/2023 4:22 PM CLINICAL INDICATION: cough, fever TECHNIQUE: Departmental protocol COMPARISON: 10/05/2021 FINDINGS/IMPRESSION: There is subtle silhouetting of the pulmonary vasculature by a fine reticular pattern of increased de nsity. This can correlate with a clinical diagnosis of acute interstitial pneumonitis versus intersti tial phase pulmonary edema. There is no focal lung consolidation to suggest chad bronchopneumonia. N o major atelectasis. The pleural spaces are negative. The cardiac silhouette appears mildly enlarged and there appears to be left atrial enlargement. Thora cic aortic tortuosity noted. The skeletal structures and soft tissues are negative for acute findings.
[2023-10-26 19:28] VITALS: BP 98/60; PULSE 59; TEMP 98.4
[2023-10-26] MEDS ORDERED: PANTOPRAZOLE 40 MG/10 ML VIAL IVP SCH (21:00)
== END 2023-10-26 20:05 | disposition home or self-care (01) ==
LOC: EC 13:24 → 6NMEDSUR 20:54
PROVIDERS: ADMIT Hospitalist; ATTEND Hospitalist
DX: K52.9 Noninfective gastroenteritis and colitis, unspecified (principal); E86.0 Dehydration; E87.1 Hypo-osmolality and hyponatremia; E86.1 Hypovolemia; I10 Essential (primary) hypertension; K42.9 Umbilical hernia without obstruction or gangrene; Z79.899 Other long term (current) drug therapy
CPT/HCPCS: 96376; 96361 ×2; 96375 ×2; 96374; 99285; 36415; 80053; 82150; 83690; 85025; 87636; 71046; 74176; G0378 ×2; J2765; J2405 ×2; J2470

== ENCOUNTER 2024-10-14 14:24 | Emergency (ER) | payer MEDICARE, BC ==
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
[2024-10-14 15:36] LABS: Bilirubin,Urine Negative (Negative); Blood,Urine Negative (Negative); Color,Urine Yellow; Glucose,Urine (UA) Negative (Negative); Ketones,Urine Negative (Negative); Leukocyte Esterase,Urine Negative (Negative); Nitrite,Urine Negative (Negative); PH, Urine 5.5 (5.0-8.0); Protein,Urine Negative (Negative); Specific Gravity,Urine 1.018 (1.001-1.035); Urobilinogen,Urine <2.0 mg/dL (<2.0)
[2024-10-14] MEDS: KETOROLAC 15 MG/ML 1 ML VIAL IVP STA (16:02)
[2024-10-14] MEDS: SODIUM CHLORIDE 0.9% 1,000 ML IV ONE (16:03)
[2024-10-14 16:09] LABS: Basophils # (A) 0.06 10*3/uL (0.00-0.10); Basophils % (A) 0.7 %; Eosinophils # (A) 0.37 10*3/uL (0.04-0.35); Eosinophils % (A) 4.4 %; HCT 38.3 % (37.2-46.3); HGB 12.8 g/dL (12.0-15.0); Lymphocytes # (A) 2.02 10*3/uL (0.90-5.00); Lymphocytes % (A) 24.3 %; MCH 31.1 pg (27.0-32.0); MCHC 33.4 g/dL (32.0-37.0); MCV 93.2 fL (80.0-97.0); Monocytes # (A) 0.92 10*3/uL (0.20-1.00); Monocytes % (A) 11.1 %; Neutrophils # (A) 4.93 10*3/uL (1.80-7.70); Neutrophils % (A) 59.3 %; Platelet Count 236 10*3/uL (140-440); RBC 4.11 10*6/uL (4.10-5.20); RDW 12.9 % (11.5-14.5); WBC 8.32 10*3/uL (4.50-10.00)
[2024-10-14 16:20] LABS: ALT 20 U/L (4-34); AST 23 U/L (14-36); African American GFR (CKD) 80 (>60 ml/min/1.73 sqM); Albumin 4.0 g/dL (3.5-5.0); Alkaline Phosphatase 145 U/L (38-126); Anion Gap 7 mmol/L; Blood Urea Nitrogen 15 mg/dL (7-17); Calcium 9.2 mg/dL (8.4-10.2); Carbon Dioxide 28 mmol/L (22-30); Chloride 105 mmol/L (98-107); Glucose 100 mg/dL (74-99); Non-African American GFR(CKD) 69 (>60 ml/min/1.73 sqM); Potassium 4.6 mmol/L (3.5-5.1); Sodium 140 mmol/L (137-145); Total Protein 7.0 g/dL (6.3-8.2)
[2024-10-14] MEDS: LIDOCAINE 4% PATCH TOPICAL STA (16:46)
--- NOTE | 2024-10-14 17:39 | CT ---
EXAMINATION TYPE: CT abdomen pelvis wo con DATE OF EXAM: 10/14/2024 5:27 PM COMPARISON: None. CLINICAL INDICATION: Female, 78 years old with history of right low back pain/flank pain, right flank pain TECHNIQUE: Axial images with sagittal coronal reformats. Examination of the solid and hollow viscera is limited given the lack of contrast. CT DLP: 702 mGycm, Automated exposure control for dose reduction was used. FINDINGS: LUNG BASES: No evidence for nodule. No evidence for infiltrate. LIVER/GB: Uncomplicated cholelithiasis. No space-occupying hepatic lesion. PANCREAS: No pancreatic mass identified. No inflammatory process seen. SPLEEN: No evidence for splenomegaly. No intrasplenic lesions seen. ADRENALS: No adrenal nodules identified. No evidence for thickening. KIDNEYS: No evidence for renal mass. No nephrolithiasis. No hydronephrosis. BOWEL: Appendix has a normal appearance. No evidence of bowel obstruction. No inflammatory process. Lymph nodes: No evidence for adenopathy greater than 1 cm. Abdominal aorta: Atheromatous changes seen. No evidence for aneurysm. Genital organs: No significant abnormality. Other: No significant abnormality. IMPRESSION: NO ACUTE PROCESS APPRECIATED. STREAK ARTIFACT LIMITS EVALUATION AT THE LEVEL OF THE URINARY BLADDER G IVEN BILATERAL HIP PROSTHESIS. [facility], , 10/14/2024 5:36 PM
--- NOTE | 2024-10-14 17:59 | CT ---
EXAMINATION TYPE: CT lumbar spine wo con DATE OF EXAM: 10/14/2024 5:27 PM COMPARISON: None CLINICAL INDICATION: Female, 78 years old with history of right low back pain/flank pain; PHH, rt fla nk pain TECHNIQUE: Unenhanced CT of the lumbar spine was performed. Bone and soft tissue window settings are submitted as well as coronal and sagittal reconstructions. CT DLP: 906.[address] CTDI: mGy Automated exposure control for dose reduction was used. FINDINGS: L1-L2: Severe degenerative disc space narrowing with posterior disc bulge and partially encapsulating spur. No definite disc herniation or central stenosis. L2-L3: Severe degenerative disc space narrowing with posterior disc bulge and partially encapsulatin g spur. Moderate central stenosis. Hypertrophied ligamentum flavum and facet joint arthropathy. Neura l foraminal encroachment seen bilaterally. L3-L4: Severe degenerative disc space narrowing with posterior disc bulge and partially encapsulating spur. Severe central stenosis. Hypertrophied ligamentum flavum and facet joint arthropathy. Neural f oraminal encroachment seen bilaterally. L4-L5: Severe degenerative disc space narrowing with posterior disc bulge and partially encapsulating spur. Severe central stenosis. Hypertrophied ligamentum flavum and facet joint arthropathy. Neural f oraminal encroachment seen bilaterally. L5-S1: Severe degenerative disc space narrowing. Posterior disc bulge. No central stenosis or disc he rniation. IMPRESSION: Multilevel central stenosis and degenerative this disease as outlined. No fracture or malalignment. [facility], , 10/14/2024 5:56 PM
[2024-10-14 18:15] VITALS: RESP 16; TEMP 98
[2024-10-14] MEDS: methylPREDNISolone SOD SUCCI 40 MG/ML 1 ML VIAL IV STA (18:53)
[2024-10-14 19:03] VITALS: BP 138/76; PULSE 70
== END 2024-10-14 19:02 | disposition home or self-care (01) ==
LOC: EC 14:24
DX: S39.012A Strain of muscle, fascia and tendon of lower back, initial encounter (principal); Z91.040 Latex allergy status; Z91.041 Radiographic dye allergy status; Z91.018 Allergy to other foods; Z88.8 Allergy status to other drugs, medicaments and biological substances; X58.XXXA Exposure to other specified factors, initial encounter
CPT/HCPCS: 36415; 80053; 85025; 81003; 72131; 74176; 99284; 96374; 96375; 96361; J1885; J2919